=== PATIENT | male | born 1960 | race Caucasian/White ===

== ENCOUNTER 2023-11-07 11:59 | Emergency (ER) | payer MEDICARE, SELFPAY ==
[2023-11-07 12:10] VITALS: BP 135/82
[2023-11-07 12:50] LABS: % Basophils 0.8 % (0-2); % Eosinophils 2.4 % (0-6); % Immature Granulocytes 0.3 % (0-0.5); % Lymphocytes 13.6 % (20.5-51.1); % Monocytes 9.2 % (1.7-9.3); % Neutrophils 73.7 % (42.2-75.2); Absolute Basophils 0.1 10^3/uL (0-0.2); Absolute Eosinophils 0.2 10^3/uL (0-0.7); Absolute Monocytes 0.7 10^3/uL (0.1-0.6); Absolute Neutrophils 5.3 10^3/uL (1.4-6.5); Hematocrit 35.1 % (39.0-52.0); Hemoglobin 11.7 g/dL (13.0-18.0); Mean Corp Hgb Conc. 33.3 g/dL (33.0-37.0); Mean Corpuscular Volume 95.9 fL (80.0-94.0); Nucleated Red Blood Cells % 0 % (-); Platelet Count 206 10^3/uL (130-400); Red Blood Cell Count 3.66 10^6/uL (4.70-6.10); Red Cell Dist. Width 13.1 % (11.5-14.5); White Blood Cell Count 7.2 10^3/uL (4.8-10.8)
[2023-11-07 13:03] LABS: ALT (SGPT) 26 U/L (0-50); AST (SGOT) 26 U/L (17-59); Albumin 3.7 g/dl (3.5-5.0); Alkaline Phosphatase 50 U/L (38-126); Blood Urea Nitrogen 31 mg/dl (9-20); Carbon Dioxide 27 mmol/L (22-30); Chloride 106 mmol/L (98-107); Glucose 112 mg/dl (70-99); Potassium 4.6 mmol/L (3.5-5.1); Sodium 140 mmol/L (135-145); Total Bilirubin 0.7 mg/dl (0.2-1.3); Total Protein 6.6 g/dl (6.3-8.2); eGFR > 60.00
[2023-11-07 14:58] LABS: Alcohol None Detected
[2023-11-07 16:02] VITALS: BMI 37.8
[2023-11-07 16:13] VITALS: BP 144/92
[2023-11-07] MEDS: NSS 1000 IV (16:17)
[2023-11-07 16:30] LABS: Ammonia < 9 umol/L (9-30)
[2023-11-07 16:38] LABS: Amphetamines Negative (Negative); Barbiturates Negative (Negative); Benzodiazepines Positive (Negative); Buprenorphine Negative (Negative); Cocaine Negative (Negative); Marijuana Positive (Negative); Methadone Negative (Negative); Methamphetamines Negative (Negative); Opiates Negative (Negative); Phencyclidine Negative (Negative); Tricyclic Antidepressants Negative (Negative)
[2023-11-07 16:39] LABS: NT-proBNP 382 pg/ml
[2023-11-07 16:57] LABS: Fentanyl, Urine Negative (Negative)
[2023-11-07 17:00] VITALS: BP 151/88
[2023-11-07 18:00] VITALS: BP 148/102
--- NOTE | 2023-11-07 18:59 | ED.GENMED ---
History of Present Illness
General
Chief Complaint: Change in Mental Status
Source: patient
Time Seen by Provider: 11/07/23 15:43
Travel History
Have you had any contact with someone who has COVID-19?: No
Do you have any symptoms of coronavirus? Fever > 100 degrees, chills, cough, shortness of breath, sore throat, loss of taste or smell, muscle aches, or headache?: No
History of Present Illness
History of Present Illness:
63-year-old male presents with confusion earlier today. He has history of ulcerative colitis and is due for an infusion at home of his [facility]. Visiting nurse thought he seemed altered and they sent him here for evaluation. Patient admits to
drinking 3-4 bottles of wine daily which last drink was last night. He also admits to eating at least 2 THC Gummies this morning. Since waiting in the waiting room his significant other in room states that he is much better and clear. Patient
denies chest pain abdominal pain shortness of breath headache or recent fever. He does not feel that he has withdrawn from alcohol in the past.
Phy Exam
Physical Exam
Physical Exam:
General: Well-appearing male no acute respiratory distress
Neurologic: Alert and oriented x 3 no facial asymmetry no drift.
Heart: Regular rate and rhythm no murmurs
Lungs: Clear to auscultation bilaterally no wheezing
Extremities: No cyanosis or edema
Course
Orders/Labs/Results
Orders:
Orders
11/07/23 12:14
EKG [Electrocardiogram (*1)] Urgent
Reason for Study: Fatigue / Weakness
EKG- Treatment ONCE
11/07/23 12:29
Alcohol Urgent
Complete Blood Count/With Diff Urgent
Comprehensive Metabolic Panel Urgent
11/07/23 16:00
0.9% Sodium Chloride 1000 ml [Nss] 1,000 ml IV BOLUS
11/07/23 16:11
Ammonia Urgent
Drug Screen, Urine [Urine Drug Abuse Screen] Urgent
Date Specimen was Collected: 11/07/23
Time Specimen was Collected: 16:04
Fentanyl, Urine Urgent
NT-proBNP Urgent
Abnormal Lab Results
11/07/23 11/07/23
12:29 16:11
RBC 3.66 L 10^6/uL
(4.70-6.10)
Hgb 11.7 L g/dL
(13.0-18.0)
Hct 35.1 L %
(39.0-52.0)
MCV 95.9 H fL
(80.0-94.0)
MCH 32.0 H pg
(27.0-31.0)
Absolute Lymphs (auto) 1.0 L 10^3/uL
(1.2-3.4)
Absolute Monos (auto) 0.7 H 10^3/uL
(0.1-0.6)
Lymphocytes % 13.6 L %
(20.5-51.1)
BUN 31 H mg/dl
(9-20)
Glucose 112 H mg/dl
(70-99)
Ammonia < 9 L umol/L
(9-30)
U Benzodiazepines Scrn Positive H
(Negative)
U Marijuana (THC) Screen Positive H
(Negative)
11/07/23 12:29
11/07/23 12:29
Vital Signs
Initial and Last Documented VS:
Initial Vital Signs
Temp Pulse Resp BP Pulse Ox
98.4 F 72 18 135/82 96
11/07/23 12:10 11/07/23 12:10 11/07/23 12:10 11/07/23 12:10 11/07/23 12:10
Last Documented Vital Signs
Temp Pulse Resp BP Pulse Ox
98.4 F 59 16 151/88 97
11/07/23 12:10 11/07/23 17:15 11/07/23 17:15 11/07/23 17:00 11/07/23 17:15
MDM/Problems Addressed
Differential Diagnosis Includes:
Confusion earlier today with recent ingestion of THC Gummies. Also has alcohol abuse history. Last drink last night. No alcohol in system today. Labs without significant findings here. Drug screen positive for benzodiazepines and THC. Had
patient talk to Benito garcia regarding potential rehab for alcohol abuse.
*Critical Care Note
Total Time (30-74mins, 75-104mins- exclusive of procedures): Not Applicable
Update Note
Update Note:
Workup here essentially negative. Patient is clear alert and oriented when I talk to him there is no confusion. He admits to chewing some THC Gummies this morning which are likely the source of his confusion earlier today. Patient seen by Benito garcia
and was given outpatient resources. No signs of acute alcohol withdrawal stable vital signs. No indication for admission or further intervention. Stable for discharge
ED Attending Note
-
Portions of this chart may have been created with voice recognition software.� Occasional wrong word or��sound alike� substitutions may have occurred due to the inherent limitations of voice recognition software.
Discharge Plan
Departure
Patient Disposition: Home (Routine Discharge)
Date of Disposition: 11/07/23
Time of Disposition: 19:00
Patient with high blood pressure during this ER visit?: No
Discharge Problem:
Substance abuse
Prescriptions:
No Action
atorvastatin 80 MG tablet
80 mg PO QPM
folic acid 1 MG tablet
1 mg PO QPM
lisinopril 20 MG tablet
20 mg PO DAILY Qty: 90 3RF
nitroglycerin 0.4 MG tablet, sublingual
0.4 mg sublingual [id number] PRN (Reason: chest pain) Qty: 30 3RF
sertraline 50 MG tablet
50 mg PO DAILY
omega 1-anf-pyv-fish oil [Fish Oil] 1 EACH capsule,delayed release(DR/EC)
2,000 mg PO QPM
aspirin 81 MG tablet,delayed release (DR/EC)
162 mg PO QPM
metoprolol succinate 25 MG tablet extended release 24 hr
25 mg PO DAILY Qty: 30 3RF
Rx Instructions:
Take 1/2 tab 12.5mg daily
Referrals:
Ese Horn DO [Family Provider] -
Activity Restrictions/Additional Instructions:
Limit alcohol use. Elevate legs for swelling. Please return for worsening symptoms otherwise follow-up with your family doctor
Interventions
Interventions:
*Risk Screen - Suicide Last Done: 11/07/23 12:10
*General Assessment Last Done: 11/07/23 12:10
*Neglect/Abuse Screening Last Done: 11/07/23 12:10
*ED COVID-19 Vaccine History Last Done: 11/07/23 12:10
ED- Neurological Assessment Last Done: 11/07/23 16:14
ED Swallowing Screen Last Done: 11/07/23 16:55
[2023-11-07 19:00] VITALS: BP 152/90
== END 2023-11-07 19:16 | disposition home or self-care (01) ==
LOC: EMR 11:59
PROVIDERS: Emergency Medicine; Physician Assistant; EMERGENCY PHYSICIAN Emergency Medicine; FAMILY PHYSICIAN Family Medicine
DX: F19.10 Other psychoactive substance abuse, uncomplicated (principal); F10.10 Alcohol abuse, uncomplicated
CPT/HCPCS: 99284; 96360; 80053; 80306; 80307; 82077; 82140; 83880; 85025; 93005